=== PATIENT | female | born 1980 | race Caucasian/White ===

== ENCOUNTER 2017-05-20 22:16 | Emergency (ER) | payer OTHER, MEDICAID ==
[~2017-05-20] VITALS: Ht 177.8 cm; Wt 77.1 kg
[~2017-05-20 22:16] MED LIST: AUGMENTIN 875875 MG PO; COLACE100 MG PO; HYDROCODONE-AP1 EAC6 PO; MILK OF MA2400 MG/10 PO; MIRALAX17 GM PO; NEURONTIN 300300 M1 PO; OMEPRAZOLE20 M2 PO; PERCOCET 10-321 EACH PO; TRAZODONE HCL100 MG PO; TUMS PO; TYLENOL325 MG PO; XANAX1 MG PO
[2017-05-20] MEDS ORDERED: LIORESAL 10 MG10 MG PO (22:23)
[2017-05-20] MEDS ORDERED: IBUPROFEN 800800 MG PO (23:32)
[2017-05-20 23:54] VITALS: BP 122/77
== END 2017-05-20 23:54 | disposition home or self-care (01) ==
LOC: M.ERS 22:16
DX: S60.221A Contusion of right hand, initial encounter (principal); R07.81 Pleurodynia; M25.511 Pain in right shoulder; Y04.2XXA Assault by strike against or bumped into by another person, initial encounter; Y93.89 Activity, other specified; Y92.89 Other specified places as the place of occurrence of the external cause; Y99.8 Other external cause status

== ENCOUNTER 2018-07-14 22:34 | Emergency (ER) | payer OTHER ==
[~2018-07-14] VITALS: Ht 177.8 cm; Wt 81.6 kg
[~2018-07-14 22:34] MED LIST changes: +IBUPROFEN 800800 MG PO; +LIORESAL 10 MG10 MG PO
[2018-07-14 23:56] LABS: URINE BILIRUBIN NEGATIVE (Negative); URINE BLOOD 3+ (Negative); URINE CLARITY CLEAR; URINE COLOR YELLOW; URINE GLUCOSE-RANDOM NEGATIVE (Negative); URINE KETONES NEGATIVE (Negative); URINE LEUKOCYTES-REFLEX NEGATIVE (Negative); URINE PROTEIN TRACE (Negative); URINE UROBILINOGEN 0.2 E.U./dl (0.2-1.0)
[2018-07-14 23:58] LABS: URINE NITRITE-REFLEX POSITIVE (Negative)
[2018-07-15 00:01] LABS: ABSOLUTE LYMPHOCYTES 0.8 thou/uL (0.8-5.3); ABSOLUTE MONOCYTES 0.5 thou/uL (0.0-1.2); ABSOLUTE NEUTROPHILS 4.6 thou/uL (1.6-8.1); BASOPHILS 0.2 %; HEMATOCRIT 41.5 % (37.0-47.0); HEMOGLOBIN 13.7 gm/dL (12.0-15.0); MCH 30.9 pg (26.0-34.0); MCHC 33.1 g/dL (28.0-37.0); MCV 93.4 fL (80.0-100.0); MONOCYTES 8.4 %; MPV 7.1 fl. (7.2-11.1); NUCLEATED RBCS 0 /100WBC; PLATELET COUNT* 236 thou/uL (150-400); POLYS 78.4 %; RBC 4.44 mil/uL (4.20-5.00); RDW-CV 13.6 % (10.5-14.5); WBC 5.9 thou/uL (4.0-11.0)
[2018-07-15 00:01] LABS: CASTS None Seen /LPF (None Seen); MUCUS 4-6 Moderate strn/LPF (None Seen); SQUAMOUS >10 Many /LPF (0-3)
[2018-07-15 00:02] LABS: URINE RBC 3-10 Few /HPF (0-2)
[2018-07-15 00:03] LABS: CRYSTALS None Seen /LPF (None Seen)
[2018-07-15 00:11] LABS: ANION GAP 10 mmol/L (7-16); BUN 9 mg/dL (7-18); CALCIUM 8.5 mg/dL (8.5-10.1); CHLORIDE 102 mmol/L (98-107); CO2 28 mmol/L (21-32); CREATININE 0.6 mg/dL (0.6-1.3); GLUCOSE 88 mg/dL (70-99); POTASSIUM 3.3 mmol/L (3.5-5.1); SODIUM 140 mmol/L (136-145)
[2018-07-15 00:20] LABS: ALBUMIN 3.4 g/dL (3.4-5.0); ALKALINE PHOSPHATASE 72 U/L (46-116); LIPASE 74 U/L (73-393); SGOT 15 U/L (15-37); SGPT 22 U/L (30-65); TOTAL BILIRUBIN 0.6 mg/dL (<0.1-1.0); TOTAL PROTEIN 7.1 g/dL (6.4-8.2); TROPONIN-I LEVEL <0.06 ng/mL (<0.06)
[2018-07-15] MEDS ORDERED: CIPROFLOXACIN500 M1 PO ×2 (00:31→02:28)
[2018-07-15] MEDS ORDERED: NORCO 5-325 TA1 EACH PO (00:31)
[2018-07-15] MEDS ORDERED: FLAGYL500 M1 PO (02:28)
[2018-07-15 02:54] VITALS: BP 119/70
--- NOTE | 2018-07-15 11:40 | EKG ---
[place] [address] ELECTROCARDIOGRAM REPORT Name: NU FALCON Room: [facility]#: [id number] Admission: 07/14/18 Attend Phys: Discharge: 07/15/18 Date of : 76 Report #: [id number] THIS REPORT FOR: //name// [facility] ED Test Date: 2018-07-14 Test Time: 23:45:51 Pat Name: NU FALCON Department: Room: Gender: F Hand Rounder: Luz Maria BISHOP : 1980 Requested By: Brian Mae Order Number: [id number] MD: Cliff Ambrocio Measurements Intervals [place] Rate: 92 P: 77 NE: 159 QRS: 60 QRSD: 93 T: 59 QT: 355 QTc: 440 Interpretive Statements Sinus rhythm Consider right atrial enlargement Compared to ECG 08/21/2016 22:01:41 No significant changes Electronically Signed On 07-15-2018 11:40:17 CDT by Cliff mAbrocio [email or web address] <ELECTRONICALLY SIGNED> By: Cliff Ambrocio MD, [facility] 07/15/18 1140 [id number] Cliff Ambrocio MD, FAC /EPI
== END 2018-07-15 02:55 | disposition home or self-care (01) ==
LOC: M.ERS 22:34
PROVIDERS: Family Medicine
DX: K52.9 Noninfective gastroenteritis and colitis, unspecified (principal); N39.0 Urinary tract infection, site not specified

== ENCOUNTER → 2019-11-07 | Outpatient (CLI) | payer OTHER ==
[~2019-11-07] MED LIST changes: +CIPROFLOXACIN500 M1 PO; +FLAGYL500 M1 PO; +MEDROLDOSEPACK PO; +NEURONTIN 300M300 M2 PO; +NORCO 5-325 TA1 EACH PO
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
== END ==
LOC: M.PC 11-05 08:40
PROVIDERS: ATTEND Anesthesiology Pain Medicine
DX: M54.12 Radiculopathy, cervical region (principal); Z79.899 Other long term (current) drug therapy